=== PATIENT | female | born 1950 ===

== ENCOUNTER 2017-06-01 05:38 | Day surgery (SDC) | payer MEDICARE, BC ==
[2017-06-01] VITALS (15 sets, daily range): BP systolic 110–146; BP diastolic 57–75
[~2017-06-01] VITALS: Ht 154.9 cm; Wt 82.6 kg
[2017-06-01] MEDS ORDERED: cefOXitin Sod 1 GM in D5W 55 ML IVPB ONE (06:00)
[2017-06-01] MEDS ORDERED: ASPIRIN-LOW81 MG ORAL (06:15)
[2017-06-01] MEDS ORDERED: SYNTHROID75 MCG ORAL (06:15)
[2017-06-01] MEDS ORDERED: CRESTOR10 M2 ORAL (06:15)
[2017-06-01] MEDS ORDERED: FOLGARD TABLET1 EAC1 PO (06:15)
[2017-06-01] MEDS ORDERED: Ropivacaine 5mg/ml Vial 30ml INJ ONE (06:45)
[2017-06-01] MEDS ORDERED: cefOXitin 2gm Inj ONE (06:45)
[2017-06-01] MEDS ORDERED: TransDerm Scop 1mg/72HR Patch TDERMAL ONE (06:57)
--- NOTE | 2017-06-01 06:59 | Pre-Procedure Note/Attestation ---
Pre-Procedure Note/Attestation Complete Prior to Procedure Planned Procedure: bilateral Procedure Narrative: Bilateral Salpingo-oophorectomy Indications for Procedure Pre-Operative Diagnosis: BRCA positive Attestation I attest that I discussed the nature of the procedure; its benefits; risks and complications; and alternatives (and the risks and benefits of such alternatives ), prior to the procedure, with the patient (or the patient's legal customer contact representative). I attest that, if there was a reasonable possibility of needing a blood transfusion, the patient (or the patient's legal customer contact representative) was given the [facility] standardized written summary, pursuant to the Zeus Corky Blood Safety Act ([place] Health and Safety Code # 1645, as amended). I attest that I re-evaluated the patient just prior to the surgery and that there has been no change in the patient's H&P, except as documented below:NONE AMITA JAMA Jun 01, 2017 06:59
[2017-06-01] MEDS ORDERED: Midazolam 2mg/2ml Inj ONE (07:00)
[2017-06-01] MEDS ORDERED: Succinylcholine 20mg/ml 10ml vial ONE (07:00)
[2017-06-01] MEDS ORDERED: fentaNYL 100 mcg/2 mL IV ONE (07:00)
[2017-06-01] MEDS ORDERED: Neostigmine 1mg/ml 10ml Inj ONE (07:00)
[2017-06-01] MEDS ORDERED: NS Irrig 1000ml ONE (07:00)
[2017-06-01] MEDS ORDERED: Propofol 200mg/20ml IV ONE (07:00)
[2017-06-01] MEDS ORDERED: LR 1000ml ONE (07:00)
[2017-06-01] MEDS ORDERED: Ketorolac 30mg Inj ONE (07:00)
[2017-06-01] MEDS ORDERED: Sterile Water Irrig 1000ml IRRIG ONE (07:00)
[2017-06-01] MEDS ORDERED: Glycopyrrolate 0.2mg/ml 1ml Vial ONE (07:00)
[2017-06-01] MEDS ORDERED: Zemuron 50mg/5ml Inj IV ONE (07:00)
[2017-06-01] MEDS ORDERED: LR 1000ml 1,000 ML IVLG SCH (08:49)
--- NOTE | 2017-06-01 08:49 | Anethesia Preoperative Eval ---
Anesthesia Pre-op PMH/ROS General Date of Evaluation: Jun 01, 2017 Time of Evaluation: 06:50 Anesthesiologist: Loli ASA Score: ASA 2 Mallampati Score Class I : Soft palate, uvula, fauces, pillars visible Class II: Soft palate, uvula, fauces visible Class III: Soft palate, base of uvula visible Class IV: Only hard plate visible Mallampati Classification: Class III Surgeon: Muriel Diagnosis: Abdominal pain Surgical Procedure: D&C Laparoscopic BSO Anesthesia History: PONV - h/o , difficult airway - anterior larynx Family History: no anesthesia problems Allergies: Coded Allergies: No Known Allergies (Unverified , 05/30/17) Medications: see eMAR Past Medical History Cardiovascular: Denies: HTN, CAD, ND, valve dz, arrhythmia, other Pulmonary: Reports: CARA, Denies: asthma, COPD, other Gastrointestinal/Genitourinary: Reports: GERD, Denies: CRI, ESRD, other Neurologic/Psychiatric: Denies: dementia, CVA, depression/anxiety, TIA, other Endocrine: Reports: hypothyroidism, Denies: DM, steroids, other HEENT: Denies: cataract (L), cataract (R), glaucoma, Y[place]TON (L), Y[place]TON (R), other Hematology/Immune: Denies: anemia, DVT, bleeding disorder, other Musculoskeletal/Integumentary: Reports: DJD, Denies: OA, RA, DDD, edema, other Other: obesity PMH Narrative: as above PSxH Narrative: Bilateral hip replacement, L breast lumpectomy Anesthesia Pre-op Phys. Exam Physician Exam Last Vital Signs Date Time Temp Pulse Resp B/P (MAP) Pulse Ox O2 Delivery O2 Flow Rate FiO2 06/01/17 06:24 97.7 81 20 121/75 97 Room Air Constitutional: NAD Neurologic: CN 2-12 intact Cardiovascular: RRR, no M/R/G Respiratory: CTA Gastrointestinal: other - Obesity Airway Exam Mallampati Score: Class III MO: limited Neck: Short ROM: limited Teeth: intact Dentures: no upper, no lower Anesthesia Pre-op A/P Labs See chart Studies Pre-op Studies: EKG - NSR Risk Assessment & Plan Assessment: ASA 2 Plan: GA with ETT PONV prevention scopolamine patch on Status Change Before Surgery: No Pre-Antibiotics Drug: Cefoxitin 2 gr. Given Within 1 Hr of Incision: Yes Time Given: 08:02 RIN CESAR M.D. Jun 01, 2017 08:49
[2017-06-01] MEDS ORDERED: DiphenhydrAMINE 50mg/ml Inj IVP PRN (09:00)
[2017-06-01] MEDS ORDERED: Ketorolac 30mg Inj IV PRN (09:00)
[2017-06-01] MEDS ORDERED: Hydromorphone 0.5mg/0.5ml inj IVP PRN (09:00)
[2017-06-01] MEDS ORDERED: Metoclopramide 10mg/2ml Inj IVP PRN (09:00)
[2017-06-01] MEDS ORDERED: Midazolam 2mg/2ml Inj IVP PRN (09:00)
--- NOTE | 2017-06-01 09:06 | Brief Operative Note ---
Immediate Post Operative Note Operative Note Pre-op Diagnosis: BRCA positive Procedure: Bilateral Salpingo-oophorectomy Post-op Diagnosis: same as pre-op Findings: consistent w/pre-op dx studies Surgeon: Amita Jama MD Instrument Setter: Bonnie Spangler MD Anesthesiologist: Morgan Ennis MD Anesthesia: general Specimen: yes - Bilateral Ovaries & tubes, ECC, EMC Complications: none Condition: stable Fluids: LRD5@100 cc/hr Estimated Blood Loss: minimal Drains: none Implant(s) used?: No AMITA JAMA Jun 01, 2017 09:06
[2017-06-01] MEDS ORDERED: Tylenol #3 tab (300mg/30mg) ORAL PRN (09:15)
[2017-06-01] MEDS ORDERED: HYDROmorphone 1mg/ml Carpuject SUBQ PRN (09:15)
[2017-06-01] MEDS ORDERED: Norco 5mg/325mg tab ORAL PRN (09:15)
[2017-06-01] MEDS ORDERED: Meperidine 50mg/ml Inj(FOR RIGORS ONLY) IVP ONE (10:30)
--- NOTE | 2017-06-01 10:48 | Immediate Post-Op Evaluation ---
Immediate Post-Op Evalulation Immediate Post-Op Evalulation Procedure: Laparoscopic BSO Date of Evaluation: Jun 01, 2017 Time of Evaluation: 09:18 IV Fluids: 1200 Blood Products: none Estimated Blood Loss: min Urinary Output: 100 Blood Pressure Systolic: 127 Blood Pressure Diastolic: 56 Pulse Rate: 68 Respiratory Rate: 20 O2 Sat by Pulse Oximetry: 99 Temperature (Fahrenheit): 97.7 Pain Score (1-10): 2 Nausea: No Vomiting: No Complications none, h/o difficult airway extremely anterior larynx, Gr 3 view with glydscope 7 ,0 tube placed with stylet case uneventful Patient Status: reacts, patent, extubated Hydration Status: adequate RIN CESAR M.D. Jun 01, 2017 10:48
--- NOTE | 2017-06-01 10:50 | 48 Hour Post Anesthesia Eval ---
Post Anesthesia Evaluation Procedure: Laparoscopic BSO Date of Evaluation: Jun 01, 2017 Time of Evaluation: 10:48 Blood Pressure Systolic: 134 0: 85 Pulse Rate: 80 Respiratory Rate: 22 Temperature (Fahrenheit): 97.6 O2 Sat by Pulse Oximetry: 98 Airway: patent Nausea: No Vomiting: No Pain Intensity: 3 Hydration Status: adequate Cardiopulmonary Status: stable Mental Status/LOC: patient returned to baseline Follow-up Care/Observations: n/a Post-Anesthesia Complications: none Follow-up care needed: ready to discharge RIN CESAR M.D. Jun 01, 2017 10:50
[2017-06-01] MEDS ORDERED: D5 1/2NS 1,000 ML IV SCH (12:00)
--- NOTE | 2017-06-01 16:30 | Operative Note - Dictated ---
DATE OF OPERATION: 06/01/2017 PREOPERATIVE DIAGNOSIS: BRCA positive. POSTOPERATIVE DIAGNOSIS: BRCA positive. PROCEDURE PERFORMED: Bilateral salpingo-oophorectomy. SURGEON: Jesus Llamas M.D. FOOD AND DRUG RESEARCH SCIENTIST: Bonnie Spangler M.D. ANESTHESIOLOGIST: Jarett Ennis M.D. ANESTHESIA: General endotracheal. PROCEDURE IN DETAIL: After all the appropriate consents were signed, the patient was brought to the operating room and placed on table in supine position. At this time, Dr. Ennis proceeded with general anesthesia and after certain difficulties, he was able to intubate the patient and proceed with the anesthesia. At that point, the patient was placed in the dorsal lithotomy position and prepped and draped in the usual fashion. Davis catheter was placed. The patient was now examined under anesthesia. Cervix was identified, dilated, and endocervical and endometrial curettage were performed. Uterine manipulator was then placed and abdominal portion of the procedure began with placing a Veress needle through the umbilical incision. The abdomen was insufflated and the 11 mm trocar was placed in the umbilicus. A laparoscope was advanced and the abdominal contents were fully visualized. Bilateral tube and ovary could be identified. There did not appear to be any pathology around the tubes and ovaries. At this time, two additional trocars were placed in the right and left lower quadrant. Other instruments were advanced and the procedure began by grasping the tube on the left side. The infundibulopelvic ligament was coagulated and transected and this trisection continued until the round ligament was reached. The tube was then transected at its base on the uterus and the entire tubo-ovarian complex was removed. The same procedure was performed on the right side and both ureters were evaluated and found to be away from the operative area. Prior to the procedure, pelvic washings were performed and submitted to pathology for evaluation. At this time, the uterus was now fully evaluated. All the operative sites were completely hemostatic. The debris and blood were suctioned from the field. The upper abdomen was examined and found to be within normal limits. Appendix was visualized and found to be within normal limits. The instruments were now removed from the abdomen one after the other with all the operative sites fully hemostatic. The patient was then placed in the supine position and awakened from general anesthesia. The incisions were closed with #0 Vicryl suture at the fascial layer and then Steri-Strips and benzoin at the skin layer. The patient was awakened from general anesthesia and brought to the recovery room in excellent condition. She tolerated the procedure very well. Jesus Mamta Llamas DR: Jose JOB#: [id number] CC: ALANNAH
== END 2017-06-01 13:00 | disposition home or self-care (01) ==
LOC: SUR 05:38
DX: R10.9 Unspecified abdominal pain (principal); Z14.8 Genetic carrier of other disease; N83.8 Other noninflammatory disorders of ovary, fallopian tube and broad ligament; E78.5 Hyperlipidemia, unspecified; Z96.643 Presence of artificial hip joint, bilateral; Z87.891 Personal history of nicotine dependence; Z81.8 Family history of other mental and behavioral disorders; E78.00 Pure hypercholesterolemia, unspecified; E03.9 Hypothyroidism, unspecified; E66.09 Other obesity due to excess calories; Z68.34 Body mass index [BMI] 34.0-34.9, adult; Z85.3 Personal history of malignant neoplasm of breast; G47.33 Obstructive sleep apnea (adult) (pediatric); K21.9 Gastro-esophageal reflux disease without esophagitis; M19.90 Unspecified osteoarthritis, unspecified site
CPT/HCPCS: 58661; J0330; J0694; J1200; J1885; J2175; J2250; J2405; J2704; J2710; J2795; J3010; J7120; 94003; 94150